=== PATIENT | male | born 1940 | race Caucasian/White ===

== ENCOUNTER 2018-03-23 05:46 | Inpatient (IN) ==
[2018-03-23] MEDS ORDERED: diphenhydrAMINE CAP 25 MG CAPSULE PO ONE (06:00)
[2018-03-23] MEDS ORDERED: DIAZEPAM 5 MG TABLET PO ONE (06:00)
[2018-03-23] MEDS ORDERED: MAGNESIUM SULF RIDER 2 GM in PREMIX 1 EACH IV PRN ×2 (06:00→13:27)
[2018-03-23] MEDS ORDERED: POTASSIUM CHLORIDE RIDER 10 MEQ in PREMIX 1 EACH IV PRN (06:00)
[2018-03-23] MEDS ORDERED: ASPIRIN 325 MG TABLET PO ONE (06:00)
[2018-03-23] MEDS: SODIUM CHLORIDE 0.9% 1,000 ML IV SCH ×2 (08:00→18:03)
[2018-03-23] MEDS ORDERED: diphenhydrAMINE CAP 25 MG CAPSULE ONE (08:42)
[2018-03-23] MEDS ORDERED: DIAZEPAM 5 MG TABLET ONE (08:42)
[2018-03-23 09:00] LABS: Calcium 8.8 MG/DL (8.5-10.1); Osmolality,Calculated 282.8 MOS/KG (273-304); Potassium 3.8 MMOL/L (3.5-5.1)
[2018-03-23] MEDS ORDERED: MIDAZOLAM 2 MG/2 ML VIAL ONE (10:18)
[2018-03-23] MEDS ORDERED: MEPERIDINE 25 MG/1 ML VIAL ONE ×2 (10:18→12:30)
[2018-03-23] MEDS ORDERED: HEPARIN 5,000 UNIT/1 ML VIAL ONE ×2 (10:23→11:42)
[2018-03-23] MEDS ORDERED: TIROFIBAN 5,000 MCG/100 ML PREMIX IV ONE (11:30)
[2018-03-23] MEDS ORDERED: TIROFIBAN 5,000 MCG/100 ML PREMIX IV SCH (12:00)
[2018-03-23] MEDS ORDERED: VERAPAMIL 5 MG/2 ML VIAL ONE (12:17)
[2018-03-23] MEDS ORDERED: ADENOSINE 6 MG/2 ML VIAL ONE (12:23)
[2018-03-23] MEDS ORDERED: TICAGRELOR 90 MG TABLET ONE ×2 (12:52→12:54)
[2018-03-23] MEDS ORDERED: DEXTROSE 50% 25 GM/50 ML VIAL IV PRN (13:27)
[2018-03-23] MEDS ORDERED: GLUCAGON 1 MG VIAL IM PRN (13:27)
[2018-03-23] MEDS ORDERED: MAGNESIUM SULF RIDER 4 GM in PREMIX 1 EACH IV PRN (13:27)
[2018-03-23] MEDS ORDERED: ONDANSETRON 4 MG/2 ML VIAL IV PRN ×2 (13:27→14:38)
[2018-03-23] MEDS ORDERED: ACETAMINOPHEN 325 MG TABLET PO PRN (13:27)
[2018-03-23] MEDS ORDERED: MEPERIDINE 25 MG/1 ML VIAL IM PRN (14:35)
[2018-03-23] MEDS ORDERED: NITROGLYCERIN SL 0.4 MG TABLET SL ONE (14:53)
[2018-03-23] MEDS: NITROGLYCERIN SL 0.4 MG TABLET SL PRN ×2 (14:55→16:30)
[2018-03-23] MEDS ORDERED: NITROGLYCERIN 2% OINT 1 INCH/GM PACK TOP ONE (14:55)
[2018-03-23] MEDS: NITROGLYCERIN 2% OINT 1 INCH/GM PACK TOP SCH ×2 (14:55→17:25)
[2018-03-23] MEDS ORDERED: NITROGLYCERIN SL 0.4 MG TABLET SL PRN (14:57)
[2018-03-23 15:04] LABS: Troponin I Only 0.044 NG/ML (0.00-0.045)
[2018-03-23] MEDS ORDERED: NITROGLYCERIN DRIP 50 MG/250 ML BOTTLE IV ONE (17:32)
[2018-03-23] MEDS ORDERED: HYDROmorphone 2 MG/1 ML VIAL ONE (17:33)
[2018-03-23] MEDS ORDERED: NITROGLYCERIN DRIP 50 MG/250 ML BOTTLE IV PRN (17:36)
[2018-03-23] MEDS ORDERED: hydrALAZINE 20 MG/1 ML VIAL IV PRN (17:39)
[2018-03-23] MEDS ORDERED: BISACODYL 5 MG TABLET PO PRN (17:56)
[2018-03-23] MEDS ORDERED: ZALEPLON 5 MG CAPSULE PO PRN (17:56)
[2018-03-23] MEDS: INSULIN ASPART PROTAMINE/ASPART 70/30 100 UNIT/ML SUBCUT SCH (18:04)
[2018-03-23 18:22] LABS: Basophils # 0.1 10*3/uL (0.0-0.2); Basophils % 0.5 % (0.0-0.8); Eosinophils # 0.1 10*3/uL (0.0-0.87); Eosinophils % 0.8 % (0.00-10.9); Hematocrit 37.4 VOL% (42.0-52.0); Hemoglobin 12.7 GM/DL (14.0-18.0); Immature Granulocytes % 0.5 %; Immature Granulocytes Absolute 0.07 #; Lymphocytes % 15.6 % (21.2-54.2); Mean Corpuscular Hemoglobin 30 PG (27-34); Mean Corpuscular Volume 89.5 FL (87-102); Mean Platelet Volume 10.3 FL (9.6-12.0); Monocytes # 0.6 10*3/uL (0.11-0.8); Monocytes % 4.6 % (1.7-12.7); Neutrophils # 10.1 10*3/uL (1.4-7.4); Platelet Count 334 T/CUMM (130-400); Red Blood Count 4.18 MC/CUMM (3.8-5.5); Red Cell Distribution Width 13.8 % (9.3-17.3)
[2018-03-23] MEDS ORDERED: SERTRALINE 25 MG TABLET PO SCH ×2 (18:30→21:00)
[2018-03-23] MEDS: CLORAZEPATE 3.75 MG TABLET PO PRN (19:14)
[2018-03-23] MEDS ORDERED: SODIUM CHLORIDE 0.9% 1,000 ML IV SCH (19:43)
[2018-03-23] MEDS ORDERED: amLODIPine 5 MG TABLET PO SCH (21:00)
[2018-03-23] MEDS: ISOSORBIDE MONONITRATE 20 MG TABLET PO SCH (21:06)
[2018-03-23] MEDS: FEXOFENADINE 180 MG TABLET PO SCH (21:07)
[2018-03-23] MEDS: ROSUVASTATIN 10 MG TABLET PO SCH (21:07)
[2018-03-23] MEDS: METOPROLOL SUCCINATE XL 100 MG TABLET PO SCH (21:07)
[2018-03-23] MEDS: TICAGRELOR 90 MG TABLET PO SCH (21:08)
[2018-03-23] MEDS: FLUTICASONE/SALMETEROL 250-50 DISKUS 14 DOSE INH SCH (21:08)
[2018-03-23] MEDS: FLUTICASONE 50 MCG NASAL SPRAY 16 GM BOTTLE BOTH NARES SCH (21:08)
[2018-03-23 22:15] LABS: CKMB % 12.6 %
[2018-03-23 22:17] LABS: Troponin I Only 3.8 NG/ML (0.00-0.045)
[2018-03-23] MEDS: HYDROmorphone 2 MG/1 ML VIAL IV PRN (23:54)
[2018-03-24 04:24] LABS: Basophils # 0.1 10*3/uL (0.0-0.2); Basophils % 0.4 % (0.0-0.8); Eosinophils # 0.1 10*3/uL (0.0-0.87); Eosinophils % 0.8 % (0.00-10.9); Hematocrit 33.1 VOL% (42.0-52.0); Hemoglobin 11.5 GM/DL (14.0-18.0); Immature Granulocytes % 0.6 %; Immature Granulocytes Absolute 0.07 #; Lymphocytes # 1.1 10*3/uL (1.4-4.0); Lymphocytes % 10.1 % (21.2-54.2); Mean Corpuscular HGB Conc 34.7 GM/DL (32-36); Mean Corpuscular Hemoglobin 31 PG (27-34); Mean Corpuscular Volume 88.5 FL (87-102); Mean Platelet Volume 10.5 FL (9.6-12.0); Monocytes # 0.6 10*3/uL (0.11-0.8); Monocytes % 5.7 % (1.7-12.7); Neutrophils # 9.2 10*3/uL (1.4-7.4); Neutrophils % 82.4 % (38.7-73.9); Platelet Count 311 T/CUMM (130-400); Red Blood Count 3.74 MC/CUMM (3.8-5.5); White Blood Count 11.2 T/CUMM (4-12)
[2018-03-24 04:57] LABS: Calcium 8.5 MG/DL (8.5-10.1); Potassium 4.4 MMOL/L (3.5-5.1)
[2018-03-24] MEDS ORDERED: GLUCAGON 1 MG VIAL IM PRN (07:23)
[2018-03-24] MEDS ORDERED: DEXTROSE 50% 25 GM/50 ML VIAL IV PRN (07:23)
[2018-03-24 08:10] LABS: CKMB % 13.5 %
[2018-03-24] MEDS: INSULIN REGULAR 100 UNIT/ML SUBCUT SCH ×4 (08:49→21:59)
[2018-03-24] MEDS: INSULIN ASPART PROTAMINE/ASPART 70/30 100 UNIT/ML SUBCUT SCH ×2 (08:49→16:26)
[2018-03-24] MEDS: ISOSORBIDE MONONITRATE 20 MG TABLET PO SCH ×2 (08:50→21:58)
[2018-03-24] MEDS: FOLIC ACID 1 MG TABLET PO SCH (08:50)
[2018-03-24] MEDS: TICAGRELOR 90 MG TABLET PO SCH ×2 (08:50→21:58)
[2018-03-24] MEDS: ASPIRIN CHEW 81 MG TABLET PO SCH (08:50)
[2018-03-24] MEDS: ALFUZOSIN 10 MG TABLET PO SCH (08:50)
[2018-03-24] MEDS: FLUTICASONE/SALMETEROL 250-50 DISKUS 14 DOSE INH SCH ×2 (08:51→21:59)
[2018-03-24] MEDS: PANTOPRAZOLE 40 MG TABLET PO SCH (08:51)
[2018-03-24] MEDS: FLUTICASONE 50 MCG NASAL SPRAY 16 GM BOTTLE BOTH NARES SCH ×2 (08:51→21:59)
[2018-03-24] MEDS: CLORAZEPATE 3.75 MG TABLET PO PRN ×2 (08:51→16:25)
[2018-03-24] MEDS: HYDROmorphone 2 MG/1 ML VIAL IV PRN ×3 (08:52→21:59)
[2018-03-24] MEDS ORDERED: VALSARTAN/HCTZ 160-12.5 MG TABLET PO SCH (09:00)
[2018-03-24] MEDS ORDERED: FUROSEMIDE 20 MG TABLET PO SCH (09:00)
[2018-03-24] MEDS: SODIUM CHLORIDE 0.9% IV SCH (09:13)
[2018-03-24] MEDS: SODIUM BICARB IV SCH (09:13)
[2018-03-24] MEDS: amLODIPine 5 MG TABLET PO SCH (21:57)
[2018-03-24] MEDS: ROSUVASTATIN 10 MG TABLET PO SCH (21:58)
[2018-03-24] MEDS: SERTRALINE 25 MG TABLET PO SCH (21:58)
[2018-03-24] MEDS: METOPROLOL SUCCINATE XL 100 MG TABLET PO SCH (21:58)
[2018-03-24] MEDS: FEXOFENADINE 180 MG TABLET PO SCH (21:58)
[2018-03-25] MEDS: SODIUM CHLORIDE 0.9% IV SCH (01:57)
[2018-03-25] MEDS: SODIUM BICARB IV SCH (01:57)
[2018-03-25] MEDS: CLORAZEPATE 3.75 MG TABLET PO PRN ×3 (04:00→20:00)
[2018-03-25 04:40] LABS: Basophils % 0.4 % (0.0-0.8); Eosinophils # 0.3 10*3/uL (0.0-0.87); Eosinophils % 3.3 % (0.00-10.9); Hematocrit 32.8 VOL% (42.0-52.0); Hemoglobin 11.6 GM/DL (14.0-18.0); Immature Granulocytes % 0.5 %; Immature Granulocytes Absolute 0.05 #; Lymphocytes # 1.6 10*3/uL (1.4-4.0); Lymphocytes % 15.2 % (21.2-54.2); Mean Corpuscular HGB Conc 35.4 GM/DL (32-36); Mean Corpuscular Hemoglobin 31 PG (27-34); Mean Corpuscular Volume 87.9 FL (87-102); Mean Platelet Volume 10.7 FL (9.6-12.0); Monocytes # 0.7 10*3/uL (0.11-0.8); Neutrophils # 7.7 10*3/uL (1.4-7.4); Neutrophils % 73.6 % (38.7-73.9); Platelet Count 288 T/CUMM (130-400); Red Blood Count 3.73 MC/CUMM (3.8-5.5); Red Cell Distribution Width 14.2 % (9.3-17.3); White Blood Count 10.4 T/CUMM (4-12)
[2018-03-25 05:56] LABS: Calcium 7.8 MG/DL (8.5-10.1); Osmolality,Calculated 292.4 MOS/KG (273-304)
[2018-03-25] MEDS: INSULIN REGULAR 100 UNIT/ML SUBCUT SCH ×4 (09:52→22:00)
[2018-03-25] MEDS: INSULIN ASPART PROTAMINE/ASPART 70/30 100 UNIT/ML SUBCUT SCH ×2 (09:52→16:29)
[2018-03-25] MEDS: FLUTICASONE 50 MCG NASAL SPRAY 16 GM BOTTLE BOTH NARES SCH ×2 (09:53→21:10)
[2018-03-25] MEDS: FOLIC ACID 1 MG TABLET PO SCH (09:53)
[2018-03-25] MEDS: ISOSORBIDE MONONITRATE 20 MG TABLET PO SCH ×2 (09:53→21:06)
[2018-03-25] MEDS: FLUTICASONE/SALMETEROL 250-50 DISKUS 14 DOSE INH SCH ×2 (09:53→21:10)
[2018-03-25] MEDS: ASPIRIN CHEW 81 MG TABLET PO SCH (09:53)
[2018-03-25] MEDS: TICAGRELOR 90 MG TABLET PO SCH ×2 (09:53→21:07)
[2018-03-25] MEDS: PANTOPRAZOLE 40 MG TABLET PO SCH (09:54)
[2018-03-25] MEDS: ALFUZOSIN 10 MG TABLET PO SCH (09:54)
[2018-03-25] MEDS ORDERED: POTASSIUM CHLORIDE 20 MEQ TABLET PO ONE (10:29)
[2018-03-25] MEDS ORDERED: FUROSEMIDE 40 MG/4 ML VIAL IV ONE (10:29)
[2018-03-25 11:17] LABS: Calcium 7.6 MG/DL (8.5-10.1); Osmolality,Calculated 291.4 MOS/KG (273-304); Potassium 3.8 MMOL/L (3.5-5.1)
[2018-03-25] MEDS: RANOLAZINE 500 MG TABLET PO SCH ×2 (11:34→21:07)
[2018-03-25] MEDS ORDERED: LOPERAMIDE 2 MG CAPSULE PO PRN (15:23)
[2018-03-25] MEDS: FEXOFENADINE 180 MG TABLET PO SCH (21:06)
[2018-03-25] MEDS: ROSUVASTATIN 10 MG TABLET PO SCH (21:06)
[2018-03-25] MEDS: amLODIPine 5 MG TABLET PO SCH (21:06)
[2018-03-25] MEDS: METOPROLOL SUCCINATE XL 100 MG TABLET PO SCH (21:06)
[2018-03-25] MEDS: SERTRALINE 25 MG TABLET PO SCH (21:07)
[2018-03-26] MEDS ORDERED: ALBUTEROL/IPRATROPIUM 3 ML NEB RESP TX PRN (00:58)
[2018-03-26 05:12] LABS: Basophils # 0.1 10*3/uL (0.0-0.2); Basophils % 0.5 % (0.0-0.8); Eosinophils # 0.4 10*3/uL (0.0-0.87); Eosinophils % 4.1 % (0.00-10.9); Hematocrit 31.8 VOL% (42.0-52.0); Hemoglobin 11.3 GM/DL (14.0-18.0); Immature Granulocytes % 0.4 %; Immature Granulocytes Absolute 0.04 #; Lymphocytes # 1.8 10*3/uL (1.4-4.0); Mean Corpuscular HGB Conc 35.5 GM/DL (32-36); Mean Corpuscular Hemoglobin 31 PG (27-34); Mean Corpuscular Volume 87.4 FL (87-102); Mean Platelet Volume 11.1 FL (9.6-12.0); Monocytes # 0.7 10*3/uL (0.11-0.8); Monocytes % 7.1 % (1.7-12.7); Neutrophils # 6.3 10*3/uL (1.4-7.4); Neutrophils % 68.9 % (38.7-73.9); Platelet Count 283 T/CUMM (130-400); Red Blood Count 3.64 MC/CUMM (3.8-5.5); Red Cell Distribution Width 14.1 % (9.3-17.3); White Blood Count 9.2 T/CUMM (4-12)
[2018-03-26 05:51] LABS: Calcium 7.4 MG/DL (8.5-10.1); Osmolality,Calculated 293.4 MOS/KG (273-304); Potassium 3.9 MMOL/L (3.5-5.1)
[2018-03-26] MEDS: INSULIN ASPART PROTAMINE/ASPART 70/30 100 UNIT/ML SUBCUT SCH ×2 (09:10→17:02)
[2018-03-26] MEDS: ALFUZOSIN 10 MG TABLET PO SCH (09:11)
[2018-03-26] MEDS: RANOLAZINE 500 MG TABLET PO SCH ×2 (09:11→21:29)
[2018-03-26] MEDS: FOLIC ACID 1 MG TABLET PO SCH (09:11)
[2018-03-26] MEDS: ISOSORBIDE MONONITRATE 20 MG TABLET PO SCH ×2 (09:11→21:30)
[2018-03-26] MEDS: TICAGRELOR 90 MG TABLET PO SCH ×2 (09:12→21:29)
[2018-03-26] MEDS: ASPIRIN CHEW 81 MG TABLET PO SCH (09:12)
[2018-03-26] MEDS: PANTOPRAZOLE 40 MG TABLET PO SCH (09:12)
[2018-03-26] MEDS: FLUTICASONE/SALMETEROL 250-50 DISKUS 14 DOSE INH SCH ×2 (09:13→21:30)
[2018-03-26] MEDS: FLUTICASONE 50 MCG NASAL SPRAY 16 GM BOTTLE BOTH NARES SCH ×2 (09:13→21:30)
[2018-03-26] MEDS: INSULIN REGULAR 100 UNIT/ML SUBCUT SCH ×4 (09:14→21:31)
[2018-03-26] MEDS: amLODIPine 5 MG TABLET PO SCH (21:29)
[2018-03-26] MEDS: METOPROLOL SUCCINATE XL 100 MG TABLET PO SCH (21:29)
[2018-03-26] MEDS: FEXOFENADINE 180 MG TABLET PO SCH (21:29)
[2018-03-26] MEDS: ROSUVASTATIN 10 MG TABLET PO SCH (21:30)
[2018-03-26] MEDS: SERTRALINE 25 MG TABLET PO SCH (21:30)
[2018-03-27] MEDS: FUROSEMIDE 40 MG/4 ML VIAL IV SCH ×3 (00:41→20:30)
[2018-03-27] MEDS: CLORAZEPATE 3.75 MG TABLET PO PRN (02:10)
[2018-03-27] MEDS: FLUTICASONE 50 MCG NASAL SPRAY 16 GM BOTTLE BOTH NARES SCH ×2 (09:13→20:34)
[2018-03-27] MEDS: FLUTICASONE/SALMETEROL 250-50 DISKUS 14 DOSE INH SCH ×2 (09:13→20:33)
[2018-03-27] MEDS: FOLIC ACID 1 MG TABLET PO SCH (09:15)
[2018-03-27] MEDS: RANOLAZINE 500 MG TABLET PO SCH ×2 (09:15→20:29)
[2018-03-27] MEDS: ISOSORBIDE MONONITRATE 20 MG TABLET PO SCH ×2 (09:15→20:29)
[2018-03-27] MEDS: TICAGRELOR 90 MG TABLET PO SCH ×2 (09:15→20:30)
[2018-03-27] MEDS: ALFUZOSIN 10 MG TABLET PO SCH (09:15)
[2018-03-27] MEDS: PANTOPRAZOLE 40 MG TABLET PO SCH (09:16)
[2018-03-27] MEDS: ASPIRIN CHEW 81 MG TABLET PO SCH (09:16)
[2018-03-27] MEDS: INSULIN REGULAR 100 UNIT/ML SUBCUT SCH ×4 (09:18→20:33)
[2018-03-27] MEDS: INSULIN ASPART PROTAMINE/ASPART 70/30 100 UNIT/ML SUBCUT SCH ×2 (09:18→17:06)
[2018-03-27] MEDS: hydrALAZINE 25 MG TABLET PO SCH ×2 (17:06→20:30)
[2018-03-27] MEDS: ROSUVASTATIN 10 MG TABLET PO SCH (20:29)
[2018-03-27] MEDS: FEXOFENADINE 180 MG TABLET PO SCH (20:30)
[2018-03-27] MEDS: amLODIPine 5 MG TABLET PO SCH (20:30)
[2018-03-27] MEDS: METOPROLOL SUCCINATE XL 100 MG TABLET PO SCH (20:30)
[2018-03-27] MEDS: ENOXAPARIN 30 MG/0.3 ML SYRINGE SUBCUT SCH (20:33)
[2018-03-27] MEDS: SERTRALINE 25 MG TABLET PO SCH (20:37)
[2018-03-28 05:33] LABS: Basophils # 0.1 10*3/uL (0.0-0.2); Basophils % 0.7 % (0.0-0.8); Eosinophils # 0.7 10*3/uL (0.0-0.87); Eosinophils % 7.2 % (0.00-10.9); Hematocrit 31.8 VOL% (42.0-52.0); Hemoglobin 11.2 GM/DL (14.0-18.0); Immature Granulocytes % 0.6 %; Immature Granulocytes Absolute 0.05 #; Lymphocytes # 1.7 10*3/uL (1.4-4.0); Lymphocytes % 18.2 % (21.2-54.2); Mean Corpuscular HGB Conc 35.2 GM/DL (32-36); Mean Corpuscular Hemoglobin 31 PG (27-34); Mean Corpuscular Volume 87.4 FL (87-102); Mean Platelet Volume 10.9 FL (9.6-12.0); Monocytes # 0.6 10*3/uL (0.11-0.8); Monocytes % 6.3 % (1.7-12.7); Neutrophils # 6.1 10*3/uL (1.4-7.4); Platelet Count 336 T/CUMM (130-400); Red Blood Count 3.64 MC/CUMM (3.8-5.5); White Blood Count 9.1 T/CUMM (4-12)
[2018-03-28 05:56] LABS: Calcium 8.1 MG/DL (8.5-10.1); Osmolality,Calculated 292.5 MOS/KG (273-304); Potassium 3.6 MMOL/L (3.5-5.1)
[2018-03-28] MEDS: RANOLAZINE 500 MG TABLET PO SCH ×2 (08:53→20:44)
[2018-03-28] MEDS: FOLIC ACID 1 MG TABLET PO SCH (08:53)
[2018-03-28] MEDS: ISOSORBIDE MONONITRATE 20 MG TABLET PO SCH ×2 (08:53→20:44)
[2018-03-28] MEDS: TICAGRELOR 90 MG TABLET PO SCH ×2 (08:53→20:45)
[2018-03-28] MEDS: ASPIRIN CHEW 81 MG TABLET PO SCH (08:54)
[2018-03-28] MEDS: ALFUZOSIN 10 MG TABLET PO SCH (08:54)
[2018-03-28] MEDS: PANTOPRAZOLE 40 MG TABLET PO SCH (08:54)
[2018-03-28] MEDS: hydrALAZINE 25 MG TABLET PO SCH ×3 (08:54→20:44)
[2018-03-28] MEDS: FLUTICASONE 50 MCG NASAL SPRAY 16 GM BOTTLE BOTH NARES SCH ×2 (08:56→20:47)
[2018-03-28] MEDS: FLUTICASONE/SALMETEROL 250-50 DISKUS 14 DOSE INH SCH ×2 (08:56→20:47)
[2018-03-28] MEDS: INSULIN REGULAR 100 UNIT/ML SUBCUT SCH ×4 (09:08→20:47)
[2018-03-28] MEDS: INSULIN ASPART PROTAMINE/ASPART 70/30 100 UNIT/ML SUBCUT SCH ×2 (09:08→16:41)
[2018-03-28] MEDS: FUROSEMIDE 40 MG/4 ML VIAL IV SCH ×3 (12:59→21:02)
[2018-03-28] MEDS: amLODIPine 5 MG TABLET PO SCH (20:44)
[2018-03-28] MEDS: CLORAZEPATE 3.75 MG TABLET PO PRN (20:44)
[2018-03-28] MEDS: ROSUVASTATIN 10 MG TABLET PO SCH (20:44)
[2018-03-28] MEDS: FEXOFENADINE 180 MG TABLET PO SCH (20:44)
[2018-03-28] MEDS: METOPROLOL SUCCINATE XL 100 MG TABLET PO SCH (20:44)
[2018-03-28] MEDS: SERTRALINE 25 MG TABLET PO SCH (20:45)
[2018-03-28] MEDS: ENOXAPARIN 30 MG/0.3 ML SYRINGE SUBCUT SCH (20:46)
[2018-03-29 05:15] LABS: Basophils # 0.1 10*3/uL (0.0-0.2); Basophils % 0.7 % (0.0-0.8); Eosinophils # 0.7 10*3/uL (0.0-0.87); Eosinophils % 7.4 % (0.00-10.9); Hematocrit 31.5 VOL% (42.0-52.0); Hemoglobin 10.9 GM/DL (14.0-18.0); Immature Granulocytes % 0.5 %; Immature Granulocytes Absolute 0.04 #; Lymphocytes # 1.8 10*3/uL (1.4-4.0); Mean Corpuscular HGB Conc 34.6 GM/DL (32-36); Mean Corpuscular Hemoglobin 31 PG (27-34); Mean Corpuscular Volume 88.7 FL (87-102); Mean Platelet Volume 11.1 FL (9.6-12.0); Monocytes # 0.7 10*3/uL (0.11-0.8); Monocytes % 7.4 % (1.7-12.7); Neutrophils # 5.7 10*3/uL (1.4-7.4); Platelet Count 327 T/CUMM (130-400); Red Blood Count 3.55 MC/CUMM (3.8-5.5); Red Cell Distribution Width 13.9 % (9.3-17.3); White Blood Count 8.8 T/CUMM (4-12)
[2018-03-29 05:55] LABS: Calcium 8.1 MG/DL (8.5-10.1); Osmolality,Calculated 288.8 MOS/KG (273-304); Potassium 3.5 MMOL/L (3.5-5.1)
[2018-03-29] MEDS: INSULIN REGULAR 100 UNIT/ML SUBCUT SCH ×4 (08:38→21:51)
[2018-03-29] MEDS: ALFUZOSIN 10 MG TABLET PO SCH (09:10)
[2018-03-29] MEDS: ASPIRIN CHEW 81 MG TABLET PO SCH (09:11)
[2018-03-29] MEDS: RANOLAZINE 500 MG TABLET PO SCH ×2 (09:11→21:50)
[2018-03-29] MEDS: hydrALAZINE 25 MG TABLET PO SCH ×3 (09:11→21:50)
[2018-03-29] MEDS: TICAGRELOR 90 MG TABLET PO SCH ×2 (09:11→21:50)
[2018-03-29] MEDS: ISOSORBIDE MONONITRATE 20 MG TABLET PO SCH ×2 (09:11→21:51)
[2018-03-29] MEDS: PANTOPRAZOLE 40 MG TABLET PO SCH (09:11)
[2018-03-29] MEDS: FOLIC ACID 1 MG TABLET PO SCH (09:11)
[2018-03-29] MEDS: INSULIN ASPART PROTAMINE/ASPART 70/30 100 UNIT/ML SUBCUT SCH ×2 (09:12→18:13)
[2018-03-29] MEDS: FLUTICASONE/SALMETEROL 250-50 DISKUS 14 DOSE INH SCH ×2 (09:12→21:51)
[2018-03-29] MEDS: FLUTICASONE 50 MCG NASAL SPRAY 16 GM BOTTLE BOTH NARES SCH ×2 (09:12→21:51)
[2018-03-29] MEDS: FUROSEMIDE 40 MG/4 ML VIAL IV SCH ×2 (09:13→16:21)
[2018-03-29] MEDS ORDERED: MAGNESIUM HYDROXIDE SUSP 30 ML UDCUP PO PRN (16:16)
[2018-03-29] MEDS ORDERED: diphenhydrAMINE CAP 25 MG CAPSULE PO PRN (16:16)
[2018-03-29] MEDS: CLORAZEPATE 3.75 MG TABLET PO PRN (16:20)
[2018-03-29] MEDS: ENOXAPARIN 30 MG/0.3 ML SYRINGE SUBCUT SCH (21:49)
[2018-03-29] MEDS: amLODIPine 5 MG TABLET PO SCH (21:50)
[2018-03-29] MEDS: SERTRALINE 25 MG TABLET PO SCH (21:50)
[2018-03-29] MEDS: ROSUVASTATIN 10 MG TABLET PO SCH (21:50)
[2018-03-29] MEDS: METOPROLOL SUCCINATE XL 100 MG TABLET PO SCH (21:50)
[2018-03-29] MEDS: FEXOFENADINE 180 MG TABLET PO SCH (21:54)
[2018-03-30 04:41] LABS: Basophils # 0.1 10*3/uL (0.0-0.2); Eosinophils # 0.5 10*3/uL (0.0-0.87); Eosinophils % 6.1 % (0.00-10.9); Hemoglobin 11.3 GM/DL (14.0-18.0); Immature Granulocytes % 0.4 %; Immature Granulocytes Absolute 0.04 #; Lymphocytes # 1.6 10*3/uL (1.4-4.0); Lymphocytes % 18.4 % (21.2-54.2); Mean Corpuscular HGB Conc 35.3 GM/DL (32-36); Mean Corpuscular Hemoglobin 31 PG (27-34); Mean Platelet Volume 10.9 FL (9.6-12.0); Monocytes # 0.6 10*3/uL (0.11-0.8); Monocytes % 6.8 % (1.7-12.7); Neutrophils % 67.3 % (38.7-73.9); Platelet Count 350 T/CUMM (130-400); Red Blood Count 3.68 MC/CUMM (3.8-5.5); Red Cell Distribution Width 13.9 % (9.3-17.3); White Blood Count 8.9 T/CUMM (4-12)
[2018-03-30 05:07] LABS: Calcium 8.6 MG/DL (8.5-10.1); Osmolality,Calculated 289.7 MOS/KG (273-304); Potassium 3.5 MMOL/L (3.5-5.1)
[2018-03-30] MEDS: hydrALAZINE 25 MG TABLET PO SCH ×2 (08:39→14:13)
[2018-03-30] MEDS: PANTOPRAZOLE 40 MG TABLET PO SCH (08:40)
[2018-03-30] MEDS: FOLIC ACID 1 MG TABLET PO SCH (08:40)
[2018-03-30] MEDS: ASPIRIN CHEW 81 MG TABLET PO SCH (08:40)
[2018-03-30] MEDS: FLUTICASONE 50 MCG NASAL SPRAY 16 GM BOTTLE BOTH NARES SCH (08:40)
[2018-03-30] MEDS: FLUTICASONE/SALMETEROL 250-50 DISKUS 14 DOSE INH SCH (08:40)
[2018-03-30] MEDS: TICAGRELOR 90 MG TABLET PO SCH (08:40)
[2018-03-30] MEDS: RANOLAZINE 500 MG TABLET PO SCH (08:40)
[2018-03-30] MEDS: ISOSORBIDE MONONITRATE 20 MG TABLET PO SCH (08:40)
[2018-03-30] MEDS: ALFUZOSIN 10 MG TABLET PO SCH (08:46)
[2018-03-30] MEDS: INSULIN ASPART PROTAMINE/ASPART 70/30 100 UNIT/ML SUBCUT SCH (08:52)
[2018-03-30] MEDS: INSULIN REGULAR 100 UNIT/ML SUBCUT SCH ×2 (08:53→12:42)
[2018-03-30] MEDS: FUROSEMIDE 40 MG/4 ML VIAL IV SCH (10:20)
[2018-03-30] MEDS ORDERED: FUROSEMIDE 80 MG TABLET PO SCH (10:30)
[2018-03-30 16:21] VITALS: BP 131/58
== END 2018-03-30 17:30 | disposition home health service (06) | DRG 246 ==
LOC: N.CL 05:46 → N.CC 11:26 → N.TELEN 03-24 18:44
PROVIDERS: ADMIT Internal Medicine Cardiovascular Disease; ATTEND Internal Medicine Cardiovascular Disease

== ENCOUNTER 2018-08-04 06:13 | Observation (INO) ==
[~2018-08-04 06:13] MED LIST: ASPIRIN 325 MG TABLET PO ONE; DIAZEPAM 5 MG TABLET PO ONE; MAGNESIUM SULF RIDER 2 GM in PREMIX 1 EACH IV PRN; POTASSIUM CHLORIDE RIDER 10 MEQ in PREMIX 1 EACH IV PRN; diphenhydrAMINE CAP 25 MG CAPSULE PO ONE
[2018-08-04] MEDS: SODIUM CHLORIDE 0.45% 1,000 ML IV SCH ×2 (07:00→20:55)
[2018-08-04] MEDS ORDERED: diphenhydrAMINE CAP 25 MG CAPSULE ONE (07:17)
[2018-08-04] MEDS ORDERED: DIAZEPAM 5 MG TABLET ONE (07:17)
[2018-08-04] MEDS ORDERED: ASPIRIN 325 MG TABLET ONE (07:21)
[2018-08-04] MEDS ORDERED: MIDAZOLAM 2 MG/2 ML VIAL ONE (08:14)
[2018-08-04] MEDS ORDERED: HYDROmorphone 2 MG/1 ML VIAL ONE ×2 (08:14→12:34)
[2018-08-04] MEDS ORDERED: LIDOCAINE 1%/EPI INJ 20 ML VIAL ONE (08:14)
[2018-08-04] MEDS ORDERED: HEPARIN 5,000 UNIT/1 ML VIAL ONE ×2 (08:53→10:03)
[2018-08-04] MEDS ORDERED: VERAPAMIL 5 MG/2 ML VIAL ONE (09:25)
[2018-08-04] MEDS ORDERED: NITROGLYCERIN DRIP 50 MG/250 ML BOTTLE IV ONE (09:25)
[2018-08-04] MEDS ORDERED: TICAGRELOR 90 MG TABLET ONE (10:31)
[2018-08-04] MEDS ORDERED: NITROGLYCERIN SL 0.4 MG TABLET SL PRN (10:48)
[2018-08-04] MEDS ORDERED: ACETAMINOPHEN 325 MG TABLET PO PRN (10:48)
[2018-08-04] MEDS ORDERED: ONDANSETRON 4 MG/2 ML VIAL IV PRN (10:48)
[2018-08-04] MEDS ORDERED: INSULIN ASPART PROTAMINE/ASPART 70/30 100 UNIT/ML SUBCUT PRN (10:49)
[2018-08-04] MEDS ORDERED: GLUCAGON 1 MG VIAL IM PRN (11:37)
[2018-08-04] MEDS ORDERED: DEXTROSE 50% 25 GM/50 ML VIAL IV PRN (11:37)
[2018-08-04] MEDS ORDERED: HYDROmorphone 2 MG/1 ML VIAL IV ONE (12:30)
[2018-08-04 13:23] LABS: Basophils % 0.5 % (0.0-0.8); Eosinophils # 0.4 10*3/uL (0.0-0.87); Eosinophils % 5.6 % (0.00-10.9); Hematocrit 32.4 VOL% (42.0-52.0); Hemoglobin 10.3 GM/DL (14.0-18.0); Immature Granulocytes % 0.3 %; Immature Granulocytes Absolute 0.02 #; Lymphocytes # 1.8 10*3/uL (1.4-4.0); Lymphocytes % 24.6 % (21.2-54.2); Mean Corpuscular HGB Conc 31.8 GM/DL (32-36); Mean Corpuscular Hemoglobin 28 PG (27-34); Mean Corpuscular Volume 88.3 FL (87-102); Monocytes # 0.6 10*3/uL (0.11-0.8); Monocytes % 7.5 % (1.7-12.7); Neutrophils # 4.6 10*3/uL (1.4-7.4); Neutrophils % 61.5 % (38.7-73.9); Platelet Count 333 T/CUMM (130-400); Red Blood Count 3.67 MC/CUMM (3.8-5.5); Red Cell Distribution Width 14.7 % (9.3-17.3); White Blood Count 7.5 T/CUMM (4-12)
[2018-08-04 14:01] LABS: Apearance,Urine Slightly Hazy (Clear); Bacteria,Urine Occasional /HPF (Few); Bilirubin,Urine Negative (Negative); Blood, Urine Moderate mg/dL (Negative); Glucose,Urine (UA) 50 mg/dL (Negative); Granular Casts,Urine 3 /LPF (0-1); Hyaline Casts,Urine 7 /LPF (0-3); Ketones,Urine Negative (Negative); Mucus,Urine Occasional /LPF (Occasional); Nitrite,Urine Negative (Negative); Protein,Urine >=500 MG/DL; RBC,Urine 18 /HPF (0-4); Squamous Epithelial Cell,Urine Occasional /HPF (0-10); Urine Color Yellow (Yellow); Urine Specific Gravity 1.015 (1.001-1.035); Urine Urobilinogen < 2.0 EU/DL (0.2-1.0); WBC,Urine 8 /HPF (0-6)
[2018-08-04] MEDS ORDERED: NOREPINEPHRINE 4 MG/4 ML VIAL IV ONE ×2 (14:27→14:29)
[2018-08-04 15:27] LABS: Basophils % 0.3 % (0.0-0.8); Eosinophils # 0.4 10*3/uL (0.0-0.87); Eosinophils % 2.7 % (0.00-10.9); Hematocrit 33.1 VOL% (42.0-52.0); Hemoglobin 10.4 GM/DL (14.0-18.0); Immature Granulocytes % 0.4 %; Immature Granulocytes Absolute 0.05 #; Lymphocytes # 1.6 10*3/uL (1.4-4.0); Lymphocytes % 11.7 % (21.2-54.2); Mean Corpuscular HGB Conc 31.4 GM/DL (32-36); Mean Corpuscular Hemoglobin 28 PG (27-34); Mean Corpuscular Volume 88.5 FL (87-102); Mean Platelet Volume 10.9 FL (9.6-12.0); Monocytes # 1.1 10*3/uL (0.11-0.8); Monocytes % 7.8 % (1.7-12.7); Neutrophils # 10.5 10*3/uL (1.4-7.4); Neutrophils % 77.1 % (38.7-73.9); Platelet Count 336 T/CUMM (130-400); Red Blood Count 3.74 MC/CUMM (3.8-5.5); Red Cell Distribution Width 14.6 % (9.3-17.3); White Blood Count 13.6 T/CUMM (4-12)
[2018-08-04] MEDS: hydrALAZINE 25 MG TABLET PO SCH ×2 (18:28→20:57)
[2018-08-04] MEDS: SERTRALINE 25 MG TABLET PO SCH (20:56)
[2018-08-04] MEDS: ROSUVASTATIN 20 MG TABLET PO SCH (20:57)
[2018-08-04] MEDS: FLUTICASONE/SALMETEROL 250-50 DISKUS 14 DOSE INH SCH (20:57)
[2018-08-04] MEDS: diphenhydrAMINE CAP 25 MG CAPSULE PO SCH (20:57)
[2018-08-04] MEDS: PRASUGREL 10 MG TABLET PO SCH (20:57)
[2018-08-04] MEDS: CARVEDILOL 12.5 MG TABLET PO SCH (20:57)
[2018-08-04] MEDS: FLUTICASONE 50 MCG NASAL SPRAY 16 GM BOTTLE BOTH NARES SCH (20:57)
[2018-08-04] MEDS ORDERED: TICAGRELOR 90 MG TABLET PO SCH (21:00)
[2018-08-05 05:09] LABS: Basophils % 0.5 % (0.0-0.8); Eosinophils # 0.5 10*3/uL (0.0-0.87); Eosinophils % 6.2 % (0.00-10.9); Hemoglobin 9.8 GM/DL (14.0-18.0); Immature Granulocytes % 0.4 %; Immature Granulocytes Absolute 0.03 #; Lymphocytes # 1.3 10*3/uL (1.4-4.0); Lymphocytes % 16.5 % (21.2-54.2); Mean Corpuscular HGB Conc 32.7 GM/DL (32-36); Mean Corpuscular Hemoglobin 28 PG (27-34); Mean Corpuscular Volume 85.5 FL (87-102); Mean Platelet Volume 12.1 FL (9.6-12.0); Monocytes # 0.5 10*3/uL (0.11-0.8); Neutrophils # 5.3 10*3/uL (1.4-7.4); Neutrophils % 69.4 % (38.7-73.9); Platelet Count 287 T/CUMM (130-400); Red Blood Count 3.51 MC/CUMM (3.8-5.5); Red Cell Distribution Width 14.8 % (9.3-17.3); White Blood Count 7.6 T/CUMM (4-12)
[2018-08-05 05:32] LABS: Calcium 8.4 MG/DL (8.5-10.1); Osmolality,Calculated 284.8 MOS/KG (273-304); Potassium 4.5 MMOL/L (3.5-5.1)
[2018-08-05] MEDS ORDERED: FUROSEMIDE 40 MG/4 ML VIAL IV ONE (08:02)
[2018-08-05] MEDS: diphenhydrAMINE CAP 25 MG CAPSULE PO SCH ×2 (09:20→20:03)
[2018-08-05] MEDS: TAMSULOSIN 0.4 MG CAPSULE PO SCH (09:21)
[2018-08-05] MEDS: CARVEDILOL 12.5 MG TABLET PO SCH ×2 (09:21→20:04)
[2018-08-05] MEDS: ASPIRIN EC 81 MG TABLET PO SCH (09:21)
[2018-08-05] MEDS: FOLIC ACID 1 MG TABLET PO SCH (09:21)
[2018-08-05] MEDS: hydrALAZINE 25 MG TABLET PO SCH ×3 (09:21→20:03)
[2018-08-05] MEDS: FLUTICASONE 50 MCG NASAL SPRAY 16 GM BOTTLE BOTH NARES SCH ×2 (09:21→20:06)
[2018-08-05] MEDS: FLUTICASONE/SALMETEROL 250-50 DISKUS 14 DOSE INH SCH ×2 (09:23→20:05)
[2018-08-05] MEDS: SODIUM CHLORIDE 0.45% 1,000 ML IV SCH (09:26)
[2018-08-05] MEDS: FUROSEMIDE 40 MG TABLET PO SCH (09:39)
[2018-08-05] MEDS ORDERED: ALBUTEROL/IPRATROPIUM 3 ML NEB RESP TX PRN (14:07)
[2018-08-05] MEDS: ROSUVASTATIN 20 MG TABLET PO SCH (20:03)
[2018-08-05] MEDS: SERTRALINE 25 MG TABLET PO SCH (20:03)
[2018-08-05] MEDS: traMADol 50 MG TABLET PO PRN (20:03)
[2018-08-05] MEDS: PRASUGREL 10 MG TABLET PO SCH (20:04)
[2018-08-05] MEDS: ZALEPLON 5 MG CAPSULE PO PRN (20:04)
[2018-08-06 08:15] LABS: Basophils % 0.5 % (0.0-0.8); Eosinophils # 0.5 10*3/uL (0.0-0.87); Eosinophils % 5.6 % (0.00-10.9); Hematocrit 26.6 VOL% (42.0-52.0); Hemoglobin 8.8 GM/DL (14.0-18.0); Immature Granulocytes % 0.4 %; Immature Granulocytes Absolute 0.03 #; Lymphocytes # 1.7 10*3/uL (1.4-4.0); Lymphocytes % 20.3 % (21.2-54.2); Mean Corpuscular HGB Conc 33.1 GM/DL (32-36); Mean Corpuscular Hemoglobin 28 PG (27-34); Mean Corpuscular Volume 85.8 FL (87-102); Mean Platelet Volume 11.2 FL (9.6-12.0); Monocytes # 0.7 10*3/uL (0.11-0.8); Monocytes % 8.9 % (1.7-12.7); Neutrophils # 5.2 10*3/uL (1.4-7.4); Neutrophils % 64.3 % (38.7-73.9); Platelet Count 300 T/CUMM (130-400); Red Cell Distribution Width 14.6 % (9.3-17.3); White Blood Count 8.2 T/CUMM (4-12)
[2018-08-06 08:43] LABS: Calcium 8.2 MG/DL (8.5-10.1); Osmolality,Calculated 285.8 MOS/KG (273-304); Potassium 3.7 MMOL/L (3.5-5.1)
[2018-08-06] MEDS: FUROSEMIDE 40 MG TABLET PO SCH (09:39)
[2018-08-06] MEDS: hydrALAZINE 25 MG TABLET PO SCH ×3 (09:39→21:25)
[2018-08-06] MEDS: TAMSULOSIN 0.4 MG CAPSULE PO SCH (09:39)
[2018-08-06] MEDS: FOLIC ACID 1 MG TABLET PO SCH (09:39)
[2018-08-06] MEDS: ASPIRIN EC 81 MG TABLET PO SCH (09:39)
[2018-08-06] MEDS: CARVEDILOL 12.5 MG TABLET PO SCH ×2 (09:39→21:26)
[2018-08-06] MEDS: diphenhydrAMINE CAP 25 MG CAPSULE PO SCH ×2 (09:39→21:24)
[2018-08-06] MEDS: FLUTICASONE/SALMETEROL 250-50 DISKUS 14 DOSE INH SCH ×2 (09:40→21:28)
[2018-08-06] MEDS: FLUTICASONE 50 MCG NASAL SPRAY 16 GM BOTTLE BOTH NARES SCH ×2 (09:40→21:28)
[2018-08-06] MEDS: traMADol 50 MG TABLET PO PRN ×2 (09:46→21:25)
[2018-08-06] MEDS: GABAPENTIN 100 MG CAPSULE PO SCH ×2 (18:21→21:25)
[2018-08-06] MEDS: ROSUVASTATIN 20 MG TABLET PO SCH (21:24)
[2018-08-06] MEDS: ZALEPLON 5 MG CAPSULE PO PRN (21:24)
[2018-08-06] MEDS: IRON (CARBONYL) 45 MG TABLET PO SCH (21:24)
[2018-08-06] MEDS: PRASUGREL 10 MG TABLET PO SCH (21:25)
[2018-08-06] MEDS: SERTRALINE 25 MG TABLET PO SCH (21:26)
[2018-08-07 04:46] LABS: Basophils # 0.1 10*3/uL (0.0-0.2); Basophils % 0.8 % (0.0-0.8); Eosinophils # 0.6 10*3/uL (0.0-0.87); Eosinophils % 7.4 % (0.00-10.9); Hematocrit 25.2 VOL% (42.0-52.0); Hemoglobin 8.5 GM/DL (14.0-18.0); Immature Granulocytes % 0.4 %; Immature Granulocytes Absolute 0.03 #; Lymphocytes # 2.2 10*3/uL (1.4-4.0); Mean Corpuscular HGB Conc 33.7 GM/DL (32-36); Mean Corpuscular Hemoglobin 28 PG (27-34); Mean Platelet Volume 11.3 FL (9.6-12.0); Monocytes # 0.7 10*3/uL (0.11-0.8); Monocytes % 9.1 % (1.7-12.7); Neutrophils # 4.4 10*3/uL (1.4-7.4); Neutrophils % 55.3 % (38.7-73.9); Platelet Count 318 T/CUMM (130-400); Red Cell Distribution Width 14.7 % (9.3-17.3)
[2018-08-07 05:25] LABS: Albumin 2.9 G/DL (3.4-5.0); Bilirubin,Total 1.1 MG/DL (0.2-1.0); Calcium 8.3 MG/DL (8.5-10.1); Osmolality,Calculated 285.7 MOS/KG (273-304); Potassium 3.8 MMOL/L (3.5-5.1); Total Protein 6.3 G/DL (6.4-8.3)
[2018-08-07 08:05] VITALS: BP 143/66
[2018-08-07] MEDS: traMADol 50 MG TABLET PO PRN (09:19)
[2018-08-07] MEDS: IRON (CARBONYL) 45 MG TABLET PO SCH (09:20)
[2018-08-07] MEDS: TAMSULOSIN 0.4 MG CAPSULE PO SCH (09:20)
[2018-08-07] MEDS: FOLIC ACID 1 MG TABLET PO SCH (09:20)
[2018-08-07] MEDS: diphenhydrAMINE CAP 25 MG CAPSULE PO SCH (09:20)
[2018-08-07] MEDS: CARVEDILOL 12.5 MG TABLET PO SCH (09:20)
[2018-08-07] MEDS: ASPIRIN EC 81 MG TABLET PO SCH (09:20)
[2018-08-07] MEDS: FUROSEMIDE 40 MG TABLET PO SCH (09:20)
[2018-08-07] MEDS: GABAPENTIN 100 MG CAPSULE PO SCH (09:20)
[2018-08-07] MEDS: hydrALAZINE 25 MG TABLET PO SCH (09:20)
[2018-08-07] MEDS: FLUTICASONE 50 MCG NASAL SPRAY 16 GM BOTTLE BOTH NARES SCH (09:22)
[2018-08-07] MEDS: FLUTICASONE/SALMETEROL 250-50 DISKUS 14 DOSE INH SCH (09:22)
== END 2018-08-07 11:12 | disposition home or self-care (01) ==
LOC: N.CC 06:13 → N.CVR 06:13 → N.CL 07:51 → EDSTATUS 09:00 → N.CC 16:31 → N.TELEN 08-05 17:50
PROVIDERS: ADMIT Internal Medicine Cardiovascular Disease; ATTEND Internal Medicine Cardiovascular Disease

== ENCOUNTER 2020-12-20 10:30 | Inpatient (IN) ==
[~2020-12-20 10:30] MED LIST changes: -diphenhydrAMINE CAP 25 MG CAPSULE PO ONE; +diphenhydrAMINE CAP 50 MG CAPSULE PO ONE
[2020-12-20] MEDS: SODIUM CHLORIDE 0.9% 1,000 ML IV SCH (11:42)
[2020-12-20] MEDS ORDERED: diphenhydrAMINE CAP 50 MG CAPSULE ONE (12:45)
[2020-12-20] MEDS ORDERED: ASPIRIN 325 MG TABLET ONE (12:45)
[2020-12-20] MEDS ORDERED: DIAZEPAM 5 MG TABLET ONE (12:45)
[2020-12-20] MEDS ORDERED: MIDAZOLAM 2 MG/2 ML VIAL ONE (13:59)
[2020-12-20] MEDS ORDERED: HYDROmorphone 2 MG/1 ML VIAL ONE (13:59)
[2020-12-20] MEDS ORDERED: LIDOCAINE 1% 20 ML VIAL ONE (14:01)
[2020-12-20] MEDS ORDERED: HEPARIN 5,000 UNIT/1 ML VIAL ONE ×2 (14:34→15:09)
[2020-12-20] MEDS ORDERED: TIROFIBAN 5,000 MCG/100 ML PREMIX IV ONE (14:58)
[2020-12-20] MEDS ORDERED: HEPARIN/NACL 0.9% 2 UNITS/ML 500 ML IV ONE (15:59)
[2020-12-20] MEDS: TIROFIBAN 5,000 MCG/100 ML PREMIX IV SCH (16:45)
[2020-12-20] MEDS ORDERED: amLODIPine 10 MG TABLET PO ONE (16:57)
[2020-12-20] MEDS: carvediloL 6.25 MG TABLET PO SCH (21:15)
[2020-12-20] MEDS: GABAPENTIN 100 MG CAPSULE PO SCH (21:15)
[2020-12-20] MEDS: FLUTICASONE/SALMETEROL 250-50 DISKUS 14 DOSE INH SCH (21:16)
[2020-12-20] MEDS: FLUTICASONE 50 MCG NASAL SPRAY 16 GM BOTTLE BOTH NARES SCH (21:16)
[2020-12-20 22:14] LABS: Basophils # 0.1 10*3/uL (0.0-0.2); Basophils % 0.7 % (0.0-0.8); Eosinophils # 0.4 10*3/uL (0.0-0.87); Eosinophils % 4.2 % (0.00-10.9); Hemoglobin 10.9 GM/DL (14.0-18.0); Immature Granulocytes % 0.4 %; Immature Granulocytes Absolute 0.04 #; Lymphocytes # 0.9 10*3/uL (1.4-4.0); Mean Corpuscular HGB Conc 31.1 GM/DL (32-36); Mean Platelet Volume 10.2 FL (9.6-12.0); Monocytes % 7.7 % (1.7-12.7); Platelet Count 367 T/CUMM (130-400); Red Blood Count 4.12 MC/CUMM (3.8-5.5); Red Cell Distribution Width 15.6 % (9.3-17.3); White Blood Count 9.8 T/CUMM (4-12)
[2020-12-21 01:36] LABS: Basophils # 0.1 10*3/uL (0.0-0.2); Basophils % 0.7 % (0.0-0.8); Eosinophils # 0.5 10*3/uL (0.0-0.87); Eosinophils % 5.9 % (0.00-10.9); Hematocrit 32.1 VOL% (42.0-52.0); Hemoglobin 10.3 GM/DL (14.0-18.0); Immature Granulocytes % 0.4 %; Immature Granulocytes Absolute 0.03 #; Lymphocytes # 1.1 10*3/uL (1.4-4.0); Lymphocytes % 13.3 % (21.2-54.2); Mean Corpuscular HGB Conc 32.1 GM/DL (32-36); Mean Corpuscular Volume 84.5 FL (87-102); Mean Platelet Volume 10.2 FL (9.6-12.0); Monocytes % 7.5 % (1.7-12.7); Neutrophils % 72.2 % (38.7-73.9); Platelet Count 335 T/CUMM (130-400); Red Cell Distribution Width 15.9 % (9.3-17.3); White Blood Count 8.2 T/CUMM (4-12)
[2020-12-21 01:47] LABS: Calcium 8.4 MG/DL (8.5-10.1); Osmolality,Calculated 282.1 MOS/KG (273-304); Potassium 4.5 MMOL/L (3.5-5.1)
[2020-12-21] MEDS: SODIUM CHLORIDE 0.9% 1,000 ML IV SCH (07:26)
[2020-12-21 07:50] LABS: Hematocrit 34.9 VOL% (42.0-52.0); Hemoglobin 10.6 GM/DL (14.0-18.0)
[2020-12-21] MEDS: TIROFIBAN 5,000 MCG/100 ML PREMIX IV SCH (07:52)
[2020-12-21] MEDS ORDERED: PRASUGREL 10 MG TABLET PO SCH (09:00)
[2020-12-21] MEDS: FOLIC ACID 1 MG TABLET PO SCH (09:22)
[2020-12-21] MEDS: ALFUZOSIN 10 MG TABLET PO SCH (09:22)
[2020-12-21] MEDS: ASPIRIN CHEW 81 MG TABLET PO SCH (09:22)
[2020-12-21] MEDS: carvediloL 6.25 MG TABLET PO SCH ×2 (09:22→21:19)
[2020-12-21] MEDS: GABAPENTIN 100 MG CAPSULE PO SCH ×2 (09:22→21:19)
[2020-12-21] MEDS: FLUTICASONE/SALMETEROL 250-50 DISKUS 14 DOSE INH SCH ×2 (09:22→21:20)
[2020-12-21] MEDS: INSULIN ASPART PROTAMINE/ASPART 70/30 100 UNIT/ML SUBCUT SCH ×3 (09:22→17:01)
[2020-12-21] MEDS: FLUTICASONE 50 MCG NASAL SPRAY 16 GM BOTTLE BOTH NARES SCH ×2 (09:23→21:19)
[2020-12-21] MEDS ORDERED: NICOTINE 14 MG/24 HR PATCH TRANSDERM PRN (14:24)
[2020-12-21] MEDS: SERTRALINE 25 MG TABLET PO SCH (21:19)
[2020-12-21] MEDS: ROSUVASTATIN 20 MG TABLET PO SCH (21:19)
[2020-12-22 05:45] LABS: Basophils # 0.1 10*3/uL (0.0-0.2); Basophils % 0.7 % (0.0-0.8); Eosinophils # 0.7 10*3/uL (0.0-0.87); Eosinophils % 8.4 % (0.00-10.9); Hematocrit 31.5 VOL% (42.0-52.0); Hemoglobin 9.5 GM/DL (14.0-18.0); Immature Granulocytes % 0.5 %; Immature Granulocytes Absolute 0.04 #; Lymphocytes # 1.7 10*3/uL (1.4-4.0); Lymphocytes % 20.7 % (21.2-54.2); Mean Corpuscular HGB Conc 30.2 GM/DL (32-36); Mean Platelet Volume 10.2 FL (9.6-12.0); Monocytes % 8.2 % (1.7-12.7); Neutrophils % 61.5 % (38.7-73.9); Platelet Count 300 T/CUMM (130-400); Red Blood Count 3.62 MC/CUMM (3.8-5.5); White Blood Count 8.3 T/CUMM (4-12)
[2020-12-22 06:04] LABS: Osmolality,Calculated 284.8 MOS/KG (273-304); Potassium 4.4 MMOL/L (3.5-5.1)
[2020-12-22] MEDS: INSULIN ASPART PROTAMINE/ASPART 70/30 100 UNIT/ML SUBCUT SCH ×3 (07:55→16:16)
[2020-12-22] MEDS: carvediloL 6.25 MG TABLET PO SCH ×2 (08:40→21:17)
[2020-12-22] MEDS: FOLIC ACID 1 MG TABLET PO SCH (08:40)
[2020-12-22] MEDS: ALFUZOSIN 10 MG TABLET PO SCH (08:40)
[2020-12-22] MEDS: GABAPENTIN 100 MG CAPSULE PO SCH ×2 (08:40→21:17)
[2020-12-22] MEDS: FLUTICASONE/SALMETEROL 250-50 DISKUS 14 DOSE INH SCH ×2 (11:30→21:17)
[2020-12-22] MEDS: FLUTICASONE 50 MCG NASAL SPRAY 16 GM BOTTLE BOTH NARES SCH ×2 (11:31→21:17)
[2020-12-22] MEDS: ROSUVASTATIN 20 MG TABLET PO SCH (21:17)
[2020-12-22] MEDS: SERTRALINE 25 MG TABLET PO SCH (21:17)
[2020-12-23 05:13] LABS: Basophils # 0.1 10*3/uL (0.0-0.2); Basophils % 0.9 % (0.0-0.8); Eosinophils # 0.6 10*3/uL (0.0-0.87); Eosinophils % 6.5 % (0.00-10.9); Hematocrit 32.8 VOL% (42.0-52.0); Hemoglobin 9.9 GM/DL (14.0-18.0); Immature Granulocytes % 0.4 %; Immature Granulocytes Absolute 0.04 #; Lymphocytes # 1.5 10*3/uL (1.4-4.0); Lymphocytes % 16.4 % (21.2-54.2); Mean Corpuscular HGB Conc 30.2 GM/DL (32-36); Mean Corpuscular Volume 86.3 FL (87-102); Mean Platelet Volume 10.3 FL (9.6-12.0); Monocytes % 7.3 % (1.7-12.7); Neutrophils % 68.5 % (38.7-73.9); Platelet Count 301 T/CUMM (130-400); Red Cell Distribution Width 15.9 % (9.3-17.3)
[2020-12-23 05:41] LABS: Calcium 9.1 MG/DL (8.5-10.1); Osmolality,Calculated 279.5 MOS/KG (273-304); Potassium 4.9 MMOL/L (3.5-5.1)
[2020-12-23] MEDS: GABAPENTIN 100 MG CAPSULE PO SCH ×2 (09:07→20:59)
[2020-12-23] MEDS: ALFUZOSIN 10 MG TABLET PO SCH (09:07)
[2020-12-23] MEDS: PRASUGREL 10 MG TABLET PO SCH (09:08)
[2020-12-23] MEDS: carvediloL 6.25 MG TABLET PO SCH ×2 (09:08→20:59)
[2020-12-23] MEDS: FOLIC ACID 1 MG TABLET PO SCH (09:08)
[2020-12-23] MEDS: ASPIRIN CHEW 81 MG TABLET PO SCH (09:08)
[2020-12-23] MEDS: INSULIN ASPART PROTAMINE/ASPART 70/30 100 UNIT/ML SUBCUT SCH ×3 (09:09→16:03)
[2020-12-23] MEDS: FLUTICASONE/SALMETEROL 250-50 DISKUS 14 DOSE INH SCH ×3 (09:09→20:59)
[2020-12-23] MEDS: FLUTICASONE 50 MCG NASAL SPRAY 16 GM BOTTLE BOTH NARES SCH ×2 (09:09→20:59)
[2020-12-23] MEDS: SODIUM CHLORIDE 0.9% 1,000 ML IV SCH (11:16)
[2020-12-23] MEDS: ROSUVASTATIN 20 MG TABLET PO SCH (20:58)
[2020-12-23] MEDS: SERTRALINE 25 MG TABLET PO SCH (20:59)
[2020-12-24 06:30] LABS: Basophils # 0.1 10*3/uL (0.0-0.2); Basophils % 1.1 % (0.0-0.8); Eosinophils # 0.5 10*3/uL (0.0-0.87); Eosinophils % 8.3 % (0.00-10.9); Hematocrit 30.6 VOL% (42.0-52.0); Hemoglobin 9.8 GM/DL (14.0-18.0); Immature Granulocytes % 0.2 %; Immature Granulocytes Absolute 0.01 #; Lymphocytes # 1.5 10*3/uL (1.4-4.0); Lymphocytes % 22.7 % (21.2-54.2); Mean Corpuscular Volume 83.8 FL (87-102); Mean Platelet Volume 11.1 FL (9.6-12.0); Monocytes % 9.1 % (1.7-12.7); Neutrophils % 58.6 % (38.7-73.9); Platelet Count 298 T/CUMM (130-400); Red Blood Count 3.65 MC/CUMM (3.8-5.5); Red Cell Distribution Width 15.9 % (9.3-17.3); White Blood Count 6.5 T/CUMM (4-12)
[2020-12-24 06:52] LABS: Calcium 8.7 MG/DL (8.5-10.1); Osmolality,Calculated 280.5 MOS/KG (273-304); Potassium 4.6 MMOL/L (3.5-5.1)
[2020-12-24] MEDS: SODIUM CHLORIDE 0.9% 1,000 ML IV SCH (08:23)
[2020-12-24] MEDS: PRASUGREL 10 MG TABLET PO SCH (08:54)
[2020-12-24] MEDS: GABAPENTIN 100 MG CAPSULE PO SCH ×2 (08:54→21:24)
[2020-12-24] MEDS: ALFUZOSIN 10 MG TABLET PO SCH (08:54)
[2020-12-24] MEDS: INSULIN ASPART PROTAMINE/ASPART 70/30 100 UNIT/ML SUBCUT SCH ×3 (08:55→16:55)
[2020-12-24] MEDS: FLUTICASONE/SALMETEROL 250-50 DISKUS 14 DOSE INH SCH ×2 (08:55→21:26)
[2020-12-24] MEDS: carvediloL 3.125 MG TABLET PO SCH ×2 (08:55→21:27)
[2020-12-24] MEDS: ASPIRIN CHEW 81 MG TABLET PO SCH (08:55)
[2020-12-24] MEDS: FLUTICASONE 50 MCG NASAL SPRAY 16 GM BOTTLE BOTH NARES SCH ×2 (08:55→21:25)
[2020-12-24] MEDS: FOLIC ACID 1 MG TABLET PO SCH (08:55)
[2020-12-24] MEDS: SERTRALINE 25 MG TABLET PO SCH (21:24)
[2020-12-24] MEDS: ROSUVASTATIN 20 MG TABLET PO SCH (21:24)
[2020-12-25] MEDS: SODIUM CHLORIDE 0.9% 1,000 ML IV SCH (02:43)
[2020-12-25 05:13] LABS: Basophils # 0.1 10*3/uL (0.0-0.2); Basophils % 0.8 % (0.0-0.8); Eosinophils # 0.7 10*3/uL (0.0-0.87); Eosinophils % 9.9 % (0.00-10.9); Hematocrit 30.5 VOL% (42.0-52.0); Hemoglobin 9.4 GM/DL (14.0-18.0); Immature Granulocytes % 0.3 %; Immature Granulocytes Absolute 0.02 #; Lymphocytes # 1.8 10*3/uL (1.4-4.0); Lymphocytes % 25.5 % (21.2-54.2); Mean Corpuscular HGB Conc 30.8 GM/DL (32-36); Mean Corpuscular Volume 84.7 FL (87-102); Mean Platelet Volume 10.3 FL (9.6-12.0); Monocytes % 9.2 % (1.7-12.7); Neutrophils % 54.3 % (38.7-73.9); Platelet Count 313 T/CUMM (130-400); Red Cell Distribution Width 15.9 % (9.3-17.3); White Blood Count 7.2 T/CUMM (4-12)
[2020-12-25 05:28] LABS: Calcium 8.5 MG/DL (8.5-10.1); Potassium 4.6 MMOL/L (3.5-5.1)
[2020-12-25] MEDS: FLUTICASONE/SALMETEROL 250-50 DISKUS 14 DOSE INH SCH (08:33)
[2020-12-25] MEDS: PRASUGREL 10 MG TABLET PO SCH (08:33)
[2020-12-25] MEDS: ASPIRIN CHEW 81 MG TABLET PO SCH (08:33)
[2020-12-25] MEDS: GABAPENTIN 100 MG CAPSULE PO SCH (08:33)
[2020-12-25] MEDS: ALFUZOSIN 10 MG TABLET PO SCH (08:33)
[2020-12-25] MEDS: FLUTICASONE 50 MCG NASAL SPRAY 16 GM BOTTLE BOTH NARES SCH (08:33)
[2020-12-25] MEDS: FOLIC ACID 1 MG TABLET PO SCH (08:33)
[2020-12-25] MEDS: carvediloL 3.125 MG TABLET PO SCH (08:33)
[2020-12-25] MEDS: INSULIN ASPART PROTAMINE/ASPART 70/30 100 UNIT/ML SUBCUT SCH (08:34)
[2020-12-25 12:31] VITALS: BP 131/50
[2020-12-27] MEDS ORDERED: CHOLECALCIFEROL 5,000 UNIT TABLET PO SCH (09:00)
== END 2020-12-25 13:26 | disposition home health service (06) | DRG 699 ==
LOC: N.TELEN 10:30 → N.CL 10:30 → N.TELEN 17:10
PROVIDERS: ADMIT Internal Medicine Cardiovascular Disease; ATTEND Internal Medicine Cardiovascular Disease